=== PATIENT | female | born 1990 | race African-American/Black ===

== ENCOUNTER 2021-03-04 17:22 | Outpatient (CLI) | payer SELFPAY | END 2021-03-04 17:23 | disposition EMS.NT | LOC: EMS 17:22 | DX: M54.9 Dorsalgia, unspecified (principal); V49.59XA Passenger injured in collision with other motor vehicles in traffic accident, initial encounter; Y92.413 State road as the place of occurrence of the external cause ==

== ENCOUNTER 2021-05-21 12:31 | Outpatient (CLI) | payer OTHER | END 2021-05-21 12:32 | disposition EMS.NT | LOC: EMS 12:31 | DX: F41.9 Anxiety disorder, unspecified (principal) ==

== ENCOUNTER 2021-07-20 00:18 | Outpatient (CLI) | payer OTHER | END 2021-07-20 00:19 | disposition critical access hospital (66) | LOC: EMS 00:18 | DX: M25.511 Pain in right shoulder (principal); X50.9XXA Other and unspecified overexertion or strenuous movements or postures, initial encounter | CPT/HCPCS: A0425; A0427 ==

== ENCOUNTER 2021-07-20 00:35 | Emergency (ER) | payer OTHER ==
--- NOTE | 2021-07-20 00:35 | ED Physician Documentation ---
PD HPI UPPER EXT INJURY - Stated complaint Stated Complaint: RIGHT SHOULDER DISLOCATION - History obtained from History obtained from: Patient, EMS - History of Present Illness Location: Right, Shoulder Type of injury: Other (no trauma) Where injury occurred: Home Timing - onset: How many minutes ago (approximately 30-[address]) Timing - details: Abrupt onset Pain level now: 10 Improved by: Immobilization Worsened by: Moving, Palpating Associated symptoms: No: Weakness, Numbness, Tingling, Swelling, Discolored Similar symptoms before: No diagnosis Recently seen: Not recently seen - Treatment prior to arrival Treatment prior to arrival: IV fentanyl 50 micrograms, IV zofran 4 mg - Additonal information Additional information: BIBA. Approximately [address], patient says she was simply reaching around her husbands back when she had sudden onset of severe right shoulder pain. She has had similar episodes in the past which she says have felt like dislocations but she had managed to self-reduce the injury and thus has not needed medical evaluation in the past. She says previous such episodes have also been with minimal (atraumatic) provocation/circumstances. patient is approximately 8 weeks . She says she has already had US in this . Review of Systems Cardiac: reports: Reviewed and negative Respiratory: reports: Reviewed and negative GI: reports: Reviewed and negative : reports: Now EGA (8 weeks). denies: Vaginal bleeding Musculoskeletal: reports: Joint pain (right shoulder). denies: Neck pain, Back pain Neurologic: denies: Focal weakness, Numbness PD PAST MEDICAL HISTORY - Past Medical History Past Medical History: Yes Psych: Depression - Present Medications Home Medications: Ambulatory Orders Medication Instructions Recorded Confirmed Sertraline [Zoloft] 25 mg PO DAILY 07/20/21 07/20/21 - Allergies Allergies/Adverse Reactions: Allergies Allergy/AdvReac Type Severity Reaction Status Date / Time No Known Drug Allergies Allergy Verified 07/20/21 00:54 PD ED PE NORMAL - Vitals Vital signs reviewed: Yes - General General: Alert and oriented X 3, Well developed/nourished, Other (appears to be in painful distress at times ) - Neck Neck: No bony TTP - Cardiac Cardiac: RRR, No murmur - Respiratory Respiratory: No respiratory distress, Clear bilaterally - Neuro Neuro: No sensory deficit (LTS intact over right deltoid and all surfaces of RUE to fingertips) PD ED PE EXPANDED - Extremities Extremities: Deformity (hollow deformity inferior to acromion c/w glenohumeral dislocation), Limited ROM, Other (patient is using left hand to brace right arm in adduction) Results - Vitals Vitals: Vital Signs - 24 hr 07/20/21 07/20/21 07/20/21 02:09 02:16 02:25 Temperature Heart Rate 77 74 68 Respiratory 14 29 H 16 Rate Blood Pressure 137/94 H 120/89 H 130/95 H O2 Saturation 9 L 98 100 07/20/21 03:03 Temperature 36.8 C Heart Rate 62 Respiratory 14 Rate Blood Pressure 124/87 H O2 Saturation 100 Oxygen O2 Source Room air - Rads (name of study) right shoulder xrays Radiology: Prelim report reviewed, See rad report post-reduction right shoulder xrays Radiology: Prelim report reviewed, See rad report Procedures - Reduction Body part reduced: Right, Shoulder Fracture or dislocation: Dislocation Anesthesia: Morphine, Fentanyl Shoulder reduction technique: [place] / ext rotation Reduction aftercare: NV intact, Xray confirms reduction, Alignment improved, Sling, Patient tolerated well - Procedural sedation Sedation prep: Informed consent, Time out completed, PE performed, ASA 1 - healthy, IV O2 monitor, ET CO2 monitor, RT present Sedation Medications: propofol Mallampati classification: II Patient status during sedation: Responds to tactile, Vitals remained stable, Maintained airway, Recovered uneventfully Sedation recovery: Recovered uneventfully, Back to baseline Time in sedation (Minutes): 25 PD MEDICAL DECISION MAKING - ED course Complexity details: reviewed results, re-evaluated patient, considered differential, d/w patient ED course: presents with right shoulder dislocation without traumatic injury. She is 8 weeks . She reported minimal relief of pain with fentanyl 50mcg by EMS. I discussed with her the option of trying reduction using one of two techniques (scapular manipulation, [place]/external rotation) that have appreciable success rates without needing conscious sedation, so as to minimize risk to the fetus. She refuses the notion of trying to move the shoulder at all, let alone attempt reduction, without more pain medication and, preferably, conscious sedation. Morphine IV was required before she would allow for xrays to be undertaken. This was not unreasonable, given the pain typically associated with GH dislocation, but it seemed unlikely that any meaningful attempt at reduction would be achieved without conscious sedation. We discussed options for conscious sedation, with risks and benefits of different agents. The two approaches I felt most comfortable with were ketamine or else propofol with fentanyl. She declines ketamine when she is told side effects could include uncomfortable visions and emergence phenomenon. ED RN gave 25 mcg fentanyl and then I titrated propofol until adequate sedation achieved, reduction was rapid and easy once she was sedated, and she had rapid r eturn to baseline mental status. She is put in a sling and post-reduction xrays confirm reduction. She requests more pain medication prior to discharge. I again emphasized the importance of trying to minimize use of narcotic/opiate medications in setting of (but also recognizing that being in severe discomfort can also be detrimental to both mother and the ) and she acknowledges understanding that minimizing use of these medications is the goal. She is given oxycodone in ED, take-home pack of percocet. No rx provided, as she should be able to transition from percocet to acetaminophen by the end of the day. Return precautions discussed. Departure - Departure Disposition: 01 Home, Self Care Clinical Impression: Shoulder dislocation Qualifiers: Encounter type: initial encounter Laterality: right Qualified Code(s): S43.004A - Unspecified dislocation of right shoulder joint, initial encounter Condition: Good Instructions: ED Dislocation Shoulder Redu, ED Sling Follow-Up: Nikolay Cruz MD [Provider Admit Priv/Credential] - Comments: Follow up with your primary care provider for reevaluation of your shoulder. Referral to orthopedic surgery is at your primary care provider's discretion. Forms: Activity restrictions Discharge Date/Time: 07/20/21 03:33
[2021-07-20] MEDS ORDERED: MORPHINE 2 MG/ML CARPUJECT IVP STA (01:15)
--- NOTE | 2021-07-20 01:55 | XRAY Report ---
PROCEDURE: Shoulder 2 View RT INDICATIONS: right shoulder injury TECHNIQUE: 2 views of the shoulder were acquired. COMPARISON: None. FINDINGS: Bones: Humeral head is inferior in relation to the glenohumeral joint. There is no visualized fractur e. No suspicious bony lesions. Visualized ribs appear intact. Soft tissues: No suspicious soft tissue calcifications. IMPRESSION: Anterior shoulder dislocation without visualized fracture. Reviewed by: Betzy Otero MD on 07/20/2021 1:54 AM PST Approved by: Betzy Otero MD on 07/20/2021 1:54 AM [facility] Station ID: [id number]
[2021-07-20] MEDS ORDERED: fentaNYL 100 MCG/2 ML VIAL IVP STA (01:59)
[2021-07-20] MEDS: PROPOFOL 200 MG/20 ML VIAL IVP STA ×4 (02:13→02:16)
[2021-07-20] MEDS ORDERED: oxyCODONE 5 MG TABLET PO STA (02:57)
[2021-07-20 03:04] VITALS: BP 124/87
[2021-07-20] MEDS ORDERED: oxyCODONE/ACET 5/325 Prepack 4 PO STA (03:17)
--- NOTE | 2021-07-20 07:47 | XRAY Report ---
PROCEDURE: Shoulder 2 View RT INDICATIONS: post-reduction TECHNIQUE: 2 views of the shoulder were acquired. COMPARISON: None. FINDINGS: Bones: There has been interval reduction of the right glenohumeral joint. No definite fracture ident ified. No suspicious bony lesions. Visualized ribs appear intact. Soft tissues: No suspicious soft tissue calcifications. IMPRESSION: 1. Interval reduction of glenohumeral joint dislocation. 2. No definite fracture. Reviewed by: Asa Peterson MD on 07/20/2021 7:45 AM PST Approved by: Asa Peterson MD on 07/20/2021 7:45 AM [facility] Station ID: [id number]
== END 2021-07-20 03:33 | disposition home or self-care (01) ==
LOC: EDUNIT# → ED 00:35
DX: O9A.211 Injury, poisoning and certain other consequences of external causes complicating pregnancy, first trimester (principal); S43.014A Anterior dislocation of right humerus, initial encounter; X50.9XXA Other and unspecified overexertion or strenuous movements or postures, initial encounter; Y93.89 Activity, other specified; Y92.009 Unspecified place in unspecified non-institutional (private) residence as the place of occurrence of the external cause; Z3A.08 8 weeks gestation of pregnancy
CPT/HCPCS: 23655; 73030; 96374; 96375; 99151; 99153; 99283; 99284; A9270

== ENCOUNTER 2021-07-25 09:31 | Emergency (ER) | payer OTHER ==
[2021-07-25] MEDS ORDERED: ONDANSETRON 4 MG/2 ML VIAL IVP STA ×3 (09:50→11:54)
[2021-07-25 09:59] LABS: BASOPHILS % (AUTO) 0.4 %; EOSINOPHILS # (AUTO) 0.1 10^3/uL (0.0-0.7); EOSINOPHILS % (AUTO) 0.7 %; HCT - HEMATOCRIT 40.6 % (37.0-47.0); HGB - HEMOGLOBIN 14.1 g/dL (12.0-16.0); LYMPHOCYTES # (AUTO) 2.1 10^3/uL (1.5-3.5); LYMPHOCYTES % (AUTO) 19.3 %; MEAN CORPUSCULAR HEMOGLOBIN 30.1 pg (27.0-31.0); MEAN CORPUSCULAR HGB CONC 34.7 g/dL (32.0-36.0); MEAN CORPUSCULAR VOLUME 86.6 fL (81.0-99.0); MONOCYTES # (AUTO) 0.6 10^3/uL (0.0-1.0); MONOCYTES % (AUTO) 5.7 %; NEUTROPHILS # (AUTO) 8.1 10^3/uL (1.5-6.6); NEUTROPHILS % (AUTO) 73.6 %; RED BLOOD COUNT 4.69 10^6/uL (4.20-5.40); RED CELL DISTRIBUTION WIDTH 12.8 % (12.0-15.0)
[2021-07-25 10:09] LABS: ALBUMIN 4.3 g/dL (3.2-5.5); ALBUMIN/GLOBULIN RATIO 1.1 (1.0-2.2); CALCIUM 9.2 mg/dL (8.5-10.3); CREATININE 0.6 mg/dL (0.4-1.0); POTASSIUM 3.7 mmol/L (3.5-5.0); TOTAL PROTEIN 8.1 g/dL (6.7-8.2)
[2021-07-25] MEDS ORDERED: MORPHINE 10 MG/ML VIAL IVP STA ×2 (10:20→11:54)
[2021-07-25] MEDS ORDERED: SODIUM CHLORIDE 0.9% 1,000 ML IV STA ×2 (10:21→12:27)
--- NOTE | 2021-07-25 13:15 | ED Physician Documentation ---
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 She had a syncopal episode in the waiting room. Review of Systems Constitutional: denies: Fever Eyes: denies: Decreased vision Ears: denies: Ear pain Nose: denies: Rhinorrhea / runny nose, Congestion Throat: denies: Sore throat Cardiac: denies: Chest pain / pressure, Palpitations Respiratory: denies: Dyspnea, Cough GI: reports: Abdominal Pain, Nausea, Vomiting : reports: Vaginal bleeding, Other (pelvic cramping). denies: Dysuria, Frequency Skin: denies: Rash Musculoskeletal: denies: Neck pain, Extremity pain Neurologic: reports: Generalized weakness. 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 ARCHITECT: None : None HEENT: None Psych: Depression Musculoskeletal: None Derm: None - Past Surgical History Past Surgical History: No - Present Medications Home Medications: Ambulatory Orders Medication Instructions Recorded Confirmed Sertraline [Zoloft] 25 mg PO DAILY 07/20/21 07/20/21 Ondansetron Odt [Zofran] 4 mg TL Q6H PRN #10 tablet 07/25/21 Sucralfate [Carafate] 1 gm PO ACHS #60 tablet 07/25/21 - Allergies Allergies/Adverse Reactions: Allergies Allergy/AdvReac Type Severity Reaction Status Date / Time No Known Drug Allergies Allergy Verified 07/25/21 09:44 - Social History Does the pt smoke?: No Smoking Status: Never smoker Does the pt drink ETOH?: Yes Does the pt have substance abuse?: No - Immunizations Immunizations are current?: No - POLST Patient has POLST: No PD ED PE NORMAL - Vitals Vital signs reviewed: Yes (hypertensive ) - General General: Alert and oriented X 3, Well developed/nourished, Other (withdrawn, pale appearing female with "scromicing") - HEENT HEENT: Atraumatic, PERRL, EOMI - Neck Neck: Supple, no meningeal sign, No bony TTP - Cardiac Cardiac: RRR, No murmur - Respiratory Respiratory: No respiratory distress, Clear bilaterally - Abdomen Abdomen: Normal bowel sounds, Soft, Non distended, No organomegaly, Other (epigastrict tenderness without garding or rebound. 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 ) Results - Vitals Vitals: Vital Signs - 24 hr 07/25/21 07/25/21 07/25/21 09:44 09:49 10:42 Temperature 36.6 C Heart Rate 88 80 84 Respiratory 22 22 22 Rate Blood Pressure 155/114 H 118/66 136/89 H O2 Saturation 100 100 99 07/25/21 07/25/21 07/25/21 11:00 11:35 14:22 Temperature Heart Rate 80 80 80 Respiratory 18 18 20 Rate Blood Pressure 147/94 H O2 Saturation 98 100 07/25/21 14:35 Temperature Heart Rate 80 Respiratory 20 Rate Blood Pressure 143/126 H O2 Saturation 100 Oxygen O2 Source Room air - Labs Labs: Laboratory Tests 07/25/21 07/25/21 07/25/21 09:45 09:45 14:00 WBC 11.0 H RBC 4.69 Hgb 14.1 Hct 40.6 MCV 86.6 MCH 30.1 MCHC 34.7 RDW 12.8 Neut # (Auto) 8.1 H Lymph # (Auto) 2.1 [place] # (Auto) 0.6 Eos # (Auto) 0.1 Baso # (Auto) 0.0 Absolute Nucleated RBC 0.00 Nucleated RBC % 0.0 Sodium 132 L Potassium 3.7 Chloride 101 Carbon Dioxide 20 L Anion Gap 11.0 BUN 7 Creatinine 0.6 Estimated GFR (MDRD) 144 Glucose 106 H Calcium 9.2 Total Bilirubin 1.0 AST 27 ALT 45 Alkaline Phosphatase 53 Total Protein 8.1 Albumin 4.3 Globulin 3.8 Albumin/Globulin Ratio 1.1 Lipase 25 Urine Color YELLOW Urine Clarity CLOUDY Urine pH 8.5 H Ur Specific [place] 1.020 Urine Protein TRACE Urine Glucose (UA) NEGATIVE Urine Ketones 40 H Urine Occult Blood NEGATIVE Urine Nitrite NEGATIVE Urine Bilirubin NEGATIVE Urine Urobilinogen 0.2 (NORMAL) Ur Leukocyte Esterase NEGATIVE Urine RBC 0-5 Urine WBC 0-3 Ur Squamous Epith Cells MANY Squamous H Amorphous Sediment Marked Urine Bacteria Many H Ur Microscopic Review INDICATED Urine Culture Comments NOT INDICATED Urine Opiates Screen POSITIVE H Ur Oxycodone Screen NEGATIVE Urine Methadone Screen NEGATIVE Ur Propoxyphene Screen NEGATIVE Ur Barbiturates Screen NEGATIVE Ur Tricyclics Screen NEGATIVE Ur Phencyclidine Scrn NEGATIVE Ur Amphetamine Screen NEGATIVE U Methamphetamines Scrn NEGATIVE U Benzodiazepines Scrn NEGATIVE Urine Cocaine Screen NEGATIVE U Cannabinoids Screen POSITIVE H - Rads (name of study) ultrasound 1st trimester Radiology: Prelim report reviewed (Impression: Single live intrauterine gestation with estimated gestational age of 9 weeks 2 days. No subchorionic hemorrhage. Right ovarian cyst measuring up to 6.4 cm. No findings of ovarian torsion), EMP read indepedently, See rad report PD MEDICAL DECISION MAKING - ED course Complexity details: reviewed results, re-evaluated patient, considered differential, d/w patient, d/w family ED course: 30-year-old female who is 9 weeks has developed bleeding this morning with a walnut sized clot and cramping. She arrives with retching and vomiting that appears uncontrolled. She has the vomiting noises consistent with cannabis hyperemesis. She admits to use of cannabis and believes that this is what is helping her. She is administered intravenous Zofran and morphine for pain and this has little effect on her nausea. She is administered a second dose of Zofran again without much change. She continues to complain of nausea have a discussion with her about the possibility of cannabis hyperemesis and we have administered Haldol 2 mg intravenously with 25 mg of Benadryl. This resulted in the patient having improvement in her nausea. She then concentrated on her abdominal pain and she was administered a GI cocktail consisting of viscous lidocaine and Mylanta which improved that as well. Departure - Departure Disposition: 01 Home, Self Care Clinical Impression: Threatened affecting intrauterine , Hyperemesis arising during Gastritis Qualifiers: Gastritis type: unspecified gastritis Chronicity: acute Gastritis bleeding: without bleeding Qualified Code(s): K29.00 - Acute gastritis without bleeding Condition: Stable Instructions: ED Preg Morning Sickness, ED Miscarriage Poss, ED PUD Vs Gastritis, ED Nausea Vomiting Prescriptions: Sucralfate [Carafate] 1 gm PO ACHS #60 tablet Ondansetron Odt [Zofran] 4 mg TL Q6H PRN #10 tablet PRN Reason: Nausea / Vomiting Comments: Monik, today it appears your vomiting was uncontrolled and we have given you some Haldol as an antidote for cannabis hyperemesis. The recommendation is to stop the cannabis for now and use the zofran as needed for the nausea. In addition it appears your stomach is irritated and I have e-scribed some carafate as well to [facility] in [place].
[2021-07-25] MEDS ORDERED: diphenhydrAMINE INJ 50 MG/ML VIAL IVP STA (13:21)
[2021-07-25] MEDS ORDERED: HALOPERIDOL 5 MG/ML VIAL IVP ONE (13:21)
--- NOTE | 2021-07-25 13:22 | Ultrasound Report ---
PROCEDURE: OB First Trimester INDICATIONS: cramping, bleeding syncope OUTSIDE/PRIOR DATING DATA: Last menstrual period (LMP): Unknown. LMP-based estimated date of delivery (RIANA): Not applicable. First dating scan (date and location): 13/07/2021. Estimated date of delivery (RIANA) from first dating scan: 02/25/2022. The below data below was generated using the ultrasound derived RIANA of 22 TECHNIQUE: Real-time scanning was performed of the fetus and maternal pelvic organs, with image documentation. COMPARISON: None FINDINGS: There is a gestational sac in the uterine fundus measuring approximately 4.6 cm (gestational age kellie mate of 10 weeks 1 day). Within the gestational sac, fetus with crown-rump length of 2.5 cm is presen t (gestational age estimate of 9 weeks 2 days). heart rate detected at 162 bpm. Yolk sac noted. No subchorionic hemorrhage identified. Simple cyst in the right ovary measuring 6.4 cm. Ovaries othe rwise normal. IMPRESSION: Single live intrauterine gestation with estimated gestational age of 9 weeks 2 days. No subchorionic hemorrhage. Right ovarian cyst measuring up to 6.4 cm. No findings of ovarian torsion. Reviewed by: Dakotah Alexander MD on 07/25/2021 1:21 PM PST Approved by: Dakotah Alexander MD on 07/25/2021 1:21 PM PST Station ID: [id number]
[2021-07-25] MEDS ORDERED: MAG HYDROX/AL HYDROX/SIMETH 30 ML UDC PO STA (14:13)
[2021-07-25] MEDS ORDERED: LIDOCAINE VISCOUS 2% 15 ML UDC MM STA (14:13)
[2021-07-25 14:26] LABS: MUDS CUTOFF CONCENTRATIONS CUTOFF CONC BELOW:
[2021-07-25 14:34] LABS: BILIRUBIN,URINE NEGATIVE (NEGATIVE); GLUCOSE, URINE (UA) NEGATIVE (NEGATIVE); KETONES,URINE (UA) 40 mg/dL (NEGATIVE); LEUKOCYTE ESTERASE, URINE NEGATIVE (NEGATIVE); NITRITE,URINE NEGATIVE (NEGATIVE); OCCULT BLOOD,URINE NEGATIVE (NEGATIVE); PH,URINE 8.5 PH (5.0-7.5); PROTEIN,URINE TRACE mg/dL (NEGATIVE); UROBILINOGEN,URINE 0.2 (NORMAL) E.U./dL (NORMAL)
[2021-07-25 14:39] LABS: CLARITY,URINE CLOUDY (CLEAR)
[2021-07-25 14:50] LABS: AMORPHOUS SEDIMENT,UR Marked /LPF; BACTERIA,URINE Many /HPF (None Seen); RBC,URINE 0-5 /HPF (0-5); SQUAMOUS EPITHELIAL CELL,UR MANY Squamous (<= Few); WBC,URINE 0-3 /HPF (0-5)
[2021-07-25 14:51] LABS: AMPHETAMINE SCREEN,URINE NEGATIVE (NEGATIVE); BARBITURATE SCREEN,UR NEGATIVE (NEGATIVE); BENZODIAZEPINES SCREEN, URINE NEGATIVE (NEGATIVE); COCAINE SCREEN URINE NEGATIVE (NEGATIVE); METHADONE SCREEN, URINE NEGATIVE (NEGATIVE); METHAMPHETAMINES SCREEN, URINE NEGATIVE (NEGATIVE); OPIATE SCREEN, URINE POSITIVE (NEGATIVE); OXYCODONE SCREEN, URINE NEGATIVE (NEGATIVE); PROPOXYPHENE SCREEN, URINE NEGATIVE (NEGATIVE); THC CANNABINOID SCREEN, URINE POSITIVE (NEGATIVE); TRICYCLIC ANTIDEPRESSANT,URINE NEGATIVE (NEGATIVE)
[2021-07-25 15:31] VITALS: BP 140/106
== END 2021-07-25 15:30 | disposition home or self-care (01) ==
LOC: ED 09:31
DX: O21.0 Mild hyperemesis gravidarum (principal); O20.0 Threatened abortion; O99.611 Diseases of the digestive system complicating pregnancy, first trimester; K29.00 Acute gastritis without bleeding; Z3A.09 9 weeks gestation of pregnancy
CPT/HCPCS: 36415; 80053; 80306; 81001; 81003; 83690; 85025; 87086; 96361; 96374; 96375; 96376; 99284

== ENCOUNTER 2021-07-25 21:22 | Emergency (ER) | payer OTHER ==
[2021-07-25] MEDS ORDERED: HALOPERIDOL 5 MG/ML VIAL IVP ONE (21:40)
[2021-07-25] MEDS ORDERED: diphenhydrAMINE INJ 50 MG/ML VIAL IVP STA (21:40)
[2021-07-25 21:56] LABS: BASOPHILS % (AUTO) 0.1 %; HCT - HEMATOCRIT 37.6 % (37.0-47.0); HGB - HEMOGLOBIN 13.2 g/dL (12.0-16.0); LYMPHOCYTES # (AUTO) 0.9 10^3/uL (1.5-3.5); LYMPHOCYTES % (AUTO) 4.8 %; MEAN CORPUSCULAR HEMOGLOBIN 29.9 pg (27.0-31.0); MEAN CORPUSCULAR HGB CONC 35.1 g/dL (32.0-36.0); MEAN CORPUSCULAR VOLUME 85.3 fL (81.0-99.0); MEAN PLATELET VOLUME 9.6 fL (7.9-10.8); MONOCYTES # (AUTO) 0.4 10^3/uL (0.0-1.0); MONOCYTES % (AUTO) 1.9 %; NEUTROPHILS # (AUTO) 17.5 10^3/uL (1.5-6.6); NEUTROPHILS % (AUTO) 92.8 %; PLT - PLATELET COUNT 304 10^3/uL (130-450); RED BLOOD COUNT 4.41 10^6/uL (4.20-5.40); RED CELL DISTRIBUTION WIDTH 12.6 % (12.0-15.0); WHITE BLOOD COUNT 18.9 x10^3/uL (4.8-10.8)
[2021-07-25 22:09] LABS: ALBUMIN 4.2 g/dL (3.2-5.5); ALBUMIN/GLOBULIN RATIO 1.2 (1.0-2.2); BILIRUBIN,TOTAL 0.8 mg/dL (0.2-1.0); CALCIUM 8.9 mg/dL (8.5-10.3); CREATININE 0.6 mg/dL (0.4-1.0); POTASSIUM 3.3 mmol/L (3.5-5.0); TOTAL PROTEIN 7.8 g/dL (6.7-8.2)
[2021-07-25] MEDS ORDERED: MORPHINE 2 MG/ML CARPUJECT IM STA (23:00)
--- NOTE | 2021-07-25 23:31 | ED Physician Documentation ---
PD HPI ABD PAIN - Stated complaint Stated Complaint: VOMIT/ABD PX - Chief complaint Chief Complaint: Abd Pain - History obtained from History obtained from: Patient - Additional information Additional information: Pt returns to the ED for CC of abdominal pain and nausea. She is just over 9 weeks by US earlier today for the same complaints. The pt denies development of new sx since her previous visit. She states she was feeling better when she left, but now sx have recurred. No further vaginal bleeding. No fevers/chills, dysuria, or cough. The pt smokes marijuana. She states she has no history of cyclical vomiting previously. She received morphine earlier, and states she would like another dose. Review of Systems Ten Systems: 10 systems reviewed and negative Constitutional: reports: Reviewed and negative Eyes: reports: Reviewed and negative Ears: reports: Reviewed and negative Nose: reports: Reviewed and negative Throat: reports: Reviewed and negative Cardiac: reports: Reviewed and negative Respiratory: reports: Reviewed and negative GI: reports: Abdominal Pain, Nausea, Vomiting : reports: Reviewed and negative Skin: reports: Reviewed and negative Musculoskeletal: reports: Reviewed and negative Neurologic: reports: Reviewed and negative Psychiatric: reports: Reviewed and negative Endocrine: reports: Reviewed and negative Immunocompromised: reports: Reviewed and negative PD PAST MEDICAL HISTORY - Past Medical History Cardiovascular: None Respiratory: None Neuro: None Endocrine/Autoimmune: None GI: None 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 : None HEENT: None Psych: Depression Musculoskeletal: None Derm: None - Past Surgical History Past Surgical History: No - Present Medications Home Medications: Ambulatory Orders Medication Instructions Recorded Confirmed Sertraline [Zoloft] 25 mg PO DAILY 07/20/21 07/25/21 Nitrofurantoin [Macrobid] 100 mg PO DAILY 07/25/21 07/25/21 Ondansetron Odt [Zofran] 4 mg TL Q6H PRN #10 tablet 07/25/21 Ondansetron Odt [Zofran] 4 mg TL Q6H PRN #10 tablet 07/25/21 07/25/21 Sucralfate [Carafate] 1 gm PO ACHS #60 tablet 07/25/21 07/25/21 - Allergies Allergies/Adverse Reactions: Allergies Allergy/AdvReac Type Severity Reaction Status Date / Time No Known Drug Allergies Allergy Verified 07/25/21 09:44 - Social History Does the pt smoke?: No Smoking Status: Never smoker Does the pt drink ETOH?: Yes Does the pt have substance abuse?: No - Immunizations Immunizations are current?: No - POLST Patient has POLST: No PD ED PE NORMAL - Vitals Vital signs reviewed: Yes - General General: Alert and oriented X 3, Well developed/nourished, Other (Pt appears uncomfortable, but otherwise in NAD) - HEENT HEENT: Atraumatic, PERRL, EOMI, Moist mucous membranes - Neck Neck: Supple, no meningeal sign - Cardiac Cardiac: RRR, No murmur, Strong equal pulses - Respiratory Respiratory: No respiratory distress, Clear bilaterally - Abdomen Abdomen: Soft, Non distended, Other (Mild, diffuse tenderness throughout abdomen) - Back Back: No CVA TTP, No spinal TTP - Derm Derm: Normal color, Warm and dry, No rash - Extremities Extremities: No deformity, No edema, No calf tenderness / cord - Neuro Neuro: Alert and oriented X 3 - Psych Psych: Normal mood, Normal affect Results - Vitals Vitals: Oxygen O2 Source Room air - Labs Labs: Laboratory Tests 07/25/21 07/25/21 21:51 21:51 WBC 18.9 H RBC 4.41 Hgb 13.2 Hct 37.6 MCV 85.3 MCH 29.9 MCHC 35.1 RDW 12.6 Plt Count 304 MPV 9.6 Neut # (Auto) 17.5 H Lymph # (Auto) 0.9 L [place] # (Auto) 0.4 Eos # (Auto) 0.0 Baso # (Auto) 0.0 Absolute Nucleated RBC 0.00 Nucleated RBC % 0.0 Sodium 130 L Potassium 3.3 L Chloride 99 L Carbon Dioxide 19 L Anion Gap 12.0 BUN 5 L Creatinine 0.6 Estimated GFR (MDRD) 144 Glucose 123 H Calcium 8.9 Total Bilirubin 0.8 AST 26 ALT 43 Alkaline Phosphatase 51 Total Protein 7.8 Albumin 4.2 Globulin 3.6 Albumin/Globulin Ratio 1.2 Lipase 30 PD MEDICAL DECISION MAKING - ED course Complexity details: re-evaluated patient, considered differential, d/w patient ED course: I discussed with the pt that we will treat her symptomatically in the ED, but that given that she is , we are not going to be relying on opiates/narcotics to manage ill-defined pain. She may have a single, small dose of morphine. She has been treated for her nausea, and is feeling better. We have discussed the usual indications for return. Departure - Departure Disposition: 01 Home, Self Care Clinical Impression: Vomiting Qualifiers: Vomiting type: bilious vomiting Nausea presence: with nausea Qualified Code(s): R11.14 - Bilious vomiting Abdominal pain Qualifiers: Abdominal location: generalized Qualified Code(s): R10.84 - Generalized abdominal pain Condition: Stable Instructions: ED Nausea Vomiting Prescriptions: Ondansetron Odt [Zofran] 4 mg TL Q6H PRN #10 tablet PRN Reason: Nausea / Vomiting Comments: Extensive work-up was done on your visit earlier today, and showed that for now, your looks very good and there is no evidence of any other significant problems in your abdomen. Please take the nausea medicine as prescribed. You will need to talk to your OB specialist about your abdominal pain, And the best medication to help with this, considering your . Discharge Date/Time: 07/26/21 00:46
[2021-07-26 00:39] VITALS: BP 134/94
== END 2021-07-26 00:46 | disposition home or self-care (01) ==
LOC: ED 21:22
DX: O21.8 Other vomiting complicating pregnancy (principal); O26.91 Pregnancy related conditions, unspecified, first trimester; R10.84 Generalized abdominal pain; O20.0 Threatened abortion; O99.611 Diseases of the digestive system complicating pregnancy, first trimester; K29.00 Acute gastritis without bleeding; Z3A.09 9 weeks gestation of pregnancy
CPT/HCPCS: 36415; 76801; 80053; 80306; 81001; 83690; 85025; 96361; 96372; 96374; 96375; 96376; 99284; A9270; J1200; 81003; 87086

== ENCOUNTER 2021-07-27 18:29 | Emergency (ER) | payer OTHER ==
[2021-07-27 19:15] LABS: ALBUMIN 4.3 g/dL (3.2-5.5); ALBUMIN/GLOBULIN RATIO 1.2 (1.0-2.2); CREATININE 0.6 mg/dL (0.4-1.0); POTASSIUM 3.2 mmol/L (3.5-5.0); TOTAL PROTEIN 7.9 g/dL (6.7-8.2)
[2021-07-27] MEDS ORDERED: SODIUM CHLORIDE 0.9% 1,000 ML IV STA (19:15)
[2021-07-27] MEDS ORDERED: ACETAMINOPHEN 1,000 MG/100 ML 100 ML IV ONE (19:15)
--- NOTE | 2021-07-27 19:17 | ED Physician Documentation ---
History of Present Illness - Stated complaint Stated Complaint: VOMITING/HEADACHE/ABD PX - Chief complaint Chief Complaint: Abd Pain - History obtained from History obtained from: Patient - Additonal information Additional information: 30yF currently at 9 wga p/w n/v nbnb and headache and diarrhea. patient was seen 2 days ago for abd pain, nausea. possible cyclic vomiting syndrome history. actively using marijuana. see NANY. 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 : None HEENT: None Psych: Depression Musculoskeletal: None Derm: None - Past Surgical History Past Surgical History: No - Present Medications Home Medications: Ambulatory Orders Medication Instructions Recorded Confirmed Sertraline [Zoloft] 25 mg PO DAILY 07/20/21 07/25/21 Nitrofurantoin [Macrobid] 100 mg PO DAILY 07/25/21 07/25/21 Ondansetron Odt [Zofran] 4 mg TL Q6H PRN #10 tablet 07/25/21 Ondansetron Odt [Zofran] 4 mg TL Q6H PRN #10 tablet 07/25/21 07/25/21 Sucralfate [Carafate] 1 gm PO ACHS #60 tablet 07/25/21 07/25/21 - Allergies Allergies/Adverse Reactions: Allergies Allergy/AdvReac Type Severity Reaction Status Date / Time No Known Drug Allergies Allergy Verified 07/27/21 18:39 - Social History Does the pt smoke?: No Smoking Status: Never smoker Does the pt drink ETOH?: Yes Does the pt have substance abuse?: No - Immunizations Immunizations are current?: No - POLST Patient has POLST: No PD ED PE NORMAL - Vitals Vital signs reviewed: Yes - General General: Alert and oriented X 3, Other (intermittenly groaning, speaking in high pitched voice) - HEENT HEENT: Atraumatic, PERRL, EOMI - Neck Neck: Supple, no meningeal sign - Cardiac Cardiac: RRR - Respiratory Respiratory: No respiratory distress, Clear bilaterally - Abdomen Abdomen: Non tender, Non distended - Derm Derm: Normal color, Warm and dry - Extremities Extremities: No deformity, No edema - Neuro Neuro: No motor deficit, No sensory deficit - Psych Psych: Other (agitated, repeatedly asking for morphine and fentanyl by name. difficult to redirect.) Results - Vitals Vitals: Oxygen O2 Source Room air - Labs Labs: Laboratory Tests 07/27/21 07/27/21 07/27/21 18:58 18:58 19:22 WBC 15.2 H RBC 4.27 Hgb 12.8 Hct 36.5 L MCV 85.5 MCH 30.0 MCHC 35.1 RDW 12.6 Plt Count 293 MPV 9.8 Neut # (Auto) 12.9 H Lymph # (Auto) 1.6 [place] # (Auto) 0.7 Eos # (Auto) 0.0 Baso # (Auto) 0.1 Absolute Nucleated RBC 0.00 Nucleated RBC % 0.0 Sodium 133 L Potassium 3.2 L Chloride 100 L Carbon Dioxide 20 L Anion Gap 13.0 BUN 7 Creatinine 0.6 Estimated GFR (MDRD) 144 Glucose 114 H Calcium 9.0 Total Bilirubin 1.0 AST 24 ALT 33 Alkaline Phosphatase 47 Total Protein 7.9 Albumin 4.3 Globulin 3.6 Albumin/Globulin Ratio 1.2 Lipase 32 HCG, Quant 275227.00 Urine Color Urine Clarity Urine pH Ur Specific [place] Urine Protein Urine Glucose (UA) Urine Ketones Urine Occult Blood Urine Nitrite Urine Bilirubin Urine Urobilinogen Ur Leukocyte Esterase Ur Microscopic Review Urine Culture Comments 07/27/21 20:37 WBC RBC Hgb Hct MCV MCH MCHC RDW Plt Count MPV Neut # (Auto) Lymph # (Auto) [place] # (Auto) Eos # (Auto) Baso # (Auto) Absolute Nucleated RBC Nucleated RBC % Sodium Potassium Chloride Carbon Dioxide Anion Gap BUN Creatinine Estimated GFR (MDRD) Glucose Calcium Total Bilirubin AST ALT Alkaline Phosphatase Total Protein Albumin Globulin Albumin/Globulin Ratio Lipase HCG, Quant Urine Color YELLOW Urine Clarity CLEAR Urine pH 7.0 Ur Specific [place] 1.020 Urine Protein NEGATIVE Urine Glucose (UA) NEGATIVE Urine Ketones >=80 H Urine Occult Blood NEGATIVE Urine Nitrite NEGATIVE Urine Bilirubin NEGATIVE Urine Urobilinogen 0.2 (NORMAL) Ur Leukocyte Esterase NEGATIVE Ur Microscopic Review NOT INDICATED Urine Culture Comments NOT INDICATED PD MEDICAL DECISION MAKING - ED course ED course: Note that I was called to the patient's room by MARK Bryan upon her being moved from triage due to seizure-like activity. Upon my evaluation patient was sitting in bed without any seizure-like activity and was alert and oriented, moving all extremities, stating she had just had a seizure. she was able to give a full history with intermittent screaming and moaning. She then asked me for morphine by name, stating it works well. After exam I checked her prior charts and NANY form and saw she was seen here twice in the past couple of days for n/v/abd pain and had thorough workup, also requesting morphine on prior visit. Tox screen was positive for marijuana and opiates. She is 9 weeks therefore I will provide IV tylenol which is safe in . vital signs within normal limits with exception of borderline HTN 140/90. Will continue to monitor, recheck labs, treat nausea with zofran and provide IVF. I reevaluated the patient s/p zofran and IV tylenol. She is no longer retching but agitated, speaking in loud high pitched voice asking over and over for fentanyl, morphine and IV benadryl. advised her since this may be a desired we cannot give her IV narcotic medication or benadryl. She is agreeable to try pepcid to settle the stomach. She was very insistent on wanting benadryl "to knock me out" and since it is usually relatively benign in early I agreed to provide. Offered to keep her here until morning time to see social work as outlined on her NANY but patient has decided to go home at this time. Return precautions provided. Departure - Departure Disposition: 01 Home, Self Care Clinical Impression: Nausea, Epigastric pain, Early stage of Condition: Stable Instructions: ED Abdominal Pain Female Non-Specific Abdominal Pain Comments: You were seen in the ED for evaluation of nausea in the first trimester and abdominal pain in the stomach. You may have gastric issues with your stomach that should be further addressed with your primary care [place] Please eat mild foods, make sure you have small snacks throughout the day and follow up with your enamel finisher and primary doctor this week. Return to the ED if you have new or worsening symptoms or other concerns. Discharge Date/Time: 07/27/21 20:50
[2021-07-27] MEDS ORDERED: ONDANSETRON 4 MG/2 ML VIAL IVP STA (19:23)
[2021-07-27 19:25] LABS: BASOPHILS # (AUTO) 0.1 10^3/uL (0.0-0.1); BASOPHILS % (AUTO) 0.3 %; EOSINOPHILS % (AUTO) 0.1 %; HCT - HEMATOCRIT 36.5 % (37.0-47.0); HGB - HEMOGLOBIN 12.8 g/dL (12.0-16.0); LYMPHOCYTES # (AUTO) 1.6 10^3/uL (1.5-3.5); LYMPHOCYTES % (AUTO) 10.4 %; MEAN CORPUSCULAR HGB CONC 35.1 g/dL (32.0-36.0); MEAN CORPUSCULAR VOLUME 85.5 fL (81.0-99.0); MEAN PLATELET VOLUME 9.8 fL (7.9-10.8); MONOCYTES # (AUTO) 0.7 10^3/uL (0.0-1.0); MONOCYTES % (AUTO) 4.4 %; NEUTROPHILS # (AUTO) 12.9 10^3/uL (1.5-6.6); NEUTROPHILS % (AUTO) 84.5 %; PLT - PLATELET COUNT 293 10^3/uL (130-450); RED BLOOD COUNT 4.27 10^6/uL (4.20-5.40); RED CELL DISTRIBUTION WIDTH 12.6 % (12.0-15.0); WHITE BLOOD COUNT 15.2 x10^3/uL (4.8-10.8)
[2021-07-27] MEDS ORDERED: FAMOTIDINE 20 MG/2 ML VIAL IVP STA ×2 (20:07→20:13)
[2021-07-27] MEDS ORDERED: diphenhydrAMINE 25 MG CAPSULE PO STA (20:18)
[2021-07-27 20:50] VITALS: BP 126/83
[2021-07-27 20:55] LABS: BILIRUBIN,URINE NEGATIVE (NEGATIVE); GLUCOSE, URINE (UA) NEGATIVE (NEGATIVE); KETONES,URINE (UA) >=80 mg/dL (NEGATIVE); LEUKOCYTE ESTERASE, URINE NEGATIVE (NEGATIVE); NITRITE,URINE NEGATIVE (NEGATIVE); OCCULT BLOOD,URINE NEGATIVE (NEGATIVE); PROTEIN,URINE NEGATIVE (NEGATIVE); UROBILINOGEN,URINE 0.2 (NORMAL) E.U./dL (NORMAL)
[2021-07-27 20:56] LABS: CLARITY,URINE CLEAR (CLEAR)
== END 2021-07-27 20:50 | disposition home or self-care (01) ==
LOC: ED 18:29
DX: O26.891 Other specified pregnancy related conditions, first trimester (principal); R10.13 Epigastric pain; O21.8 Other vomiting complicating pregnancy; Z3A.09 9 weeks gestation of pregnancy
CPT/HCPCS: 36415; 80053; 81003; 83690; 84702; 85025; 96365; 96375; 99281; 99283; A9270; J0131; 81001; 87086

== ENCOUNTER 2021-08-03 00:24 | Outpatient (CLI) | payer OTHER | END 2021-08-03 00:25 | disposition left against medical advice (07) | LOC: EMS 00:24 | DX: O26.91 Pregnancy related conditions, unspecified, first trimester (principal); R56.9 Unspecified convulsions ==

== ENCOUNTER 2021-09-26 19:47 | Outpatient (CLI) | payer SELFPAY | END 2021-09-26 19:48 | disposition critical access hospital (66) | LOC: EMS 19:47 | DX: O26.90 Pregnancy related conditions, unspecified, unspecified trimester (principal); N89.8 Other specified noninflammatory disorders of vagina; R45.89 Other symptoms and signs involving emotional state | CPT/HCPCS: A0425; A0429 ==

== ENCOUNTER 2021-09-26 20:01 | Emergency (ER) | payer SELFPAY ==
[2021-09-26 20:44] VITALS: BP 110/67
== END 2021-09-26 21:37 | disposition left against medical advice (07) ==
LOC: EDUNIT# → ED 20:01
DX: Z53.21 Procedure and treatment not carried out due to patient leaving prior to being seen by health care provider (principal)

== ENCOUNTER 2021-09-26 21:35 | Emergency (ER) | payer SELFPAY ==
[2021-09-26 23:05] LABS: BILIRUBIN,URINE NEGATIVE (NEGATIVE); GLUCOSE, URINE (UA) NEGATIVE (NEGATIVE); KETONES,URINE (UA) >=80 mg/dL (NEGATIVE); LEUKOCYTE ESTERASE, URINE NEGATIVE (NEGATIVE); NITRITE,URINE NEGATIVE (NEGATIVE); OCCULT BLOOD,URINE NEGATIVE (NEGATIVE); PROTEIN,URINE 100 mg/dL (NEGATIVE); UROBILINOGEN,URINE 0.2 (NORMAL) E.U./dL (NORMAL)
[2021-09-26 23:06] LABS: CLARITY,URINE CLEAR (CLEAR)
[2021-09-26 23:15] LABS: BACTERIA,URINE Few /HPF (None Seen); CASTS, URINE 0-2 Hyaline Casts /LPF; MUCUS,URINE Moderate Strands; RBC,URINE 0-5 /HPF (0-5); SQUAMOUS EPITHELIAL CELL,UR FEW Squamous (<= Few); WBC,URINE 0-3 /HPF (0-5)
[2021-09-26 23:17] LABS: BASOPHILS % (AUTO) 0.3 %; EOSINOPHILS # (AUTO) 0.1 10^3/uL (0.0-0.7); EOSINOPHILS % (AUTO) 0.4 %; HCT - HEMATOCRIT 30.8 % (37.0-47.0); HGB - HEMOGLOBIN 10.7 g/dL (12.0-16.0); LYMPHOCYTES # (AUTO) 1.5 10^3/uL (1.5-3.5); LYMPHOCYTES % (AUTO) 10.9 %; MEAN CORPUSCULAR HEMOGLOBIN 30.1 pg (27.0-31.0); MEAN CORPUSCULAR HGB CONC 34.7 g/dL (32.0-36.0); MEAN CORPUSCULAR VOLUME 86.5 fL (81.0-99.0); MEAN PLATELET VOLUME 10.1 fL (7.9-10.8); MONOCYTES # (AUTO) 0.7 10^3/uL (0.0-1.0); MONOCYTES % (AUTO) 5.4 %; NEUTROPHILS # (AUTO) 11.2 10^3/uL (1.5-6.6); NEUTROPHILS % (AUTO) 82.6 %; PLT - PLATELET COUNT 252 10^3/uL (130-450); RED BLOOD COUNT 3.56 10^6/uL (4.20-5.40); RED CELL DISTRIBUTION WIDTH 13.6 % (12.0-15.0); WHITE BLOOD COUNT 13.6 x10^3/uL (4.8-10.8)
[2021-09-26 23:30] LABS: ALBUMIN 4.1 g/dL (3.2-5.5); ALBUMIN/GLOBULIN RATIO 1.1 (1.0-2.2); BILIRUBIN,TOTAL 1.2 mg/dL (0.2-1.0); CREATININE 0.6 mg/dL (0.4-1.0); POTASSIUM 3.3 mmol/L (3.5-5.0); TOTAL PROTEIN 7.9 g/dL (6.7-8.2)
[2021-09-26] MEDS ORDERED: ACETAMINOPHEN 500 MG TABLET PO STA (23:42)
--- NOTE | 2021-09-27 02:51 | ED Physician Documentation ---
PD HPI FEMALE - Stated complaint Stated Complaint: FEMALE - Chief complaint Chief Complaint: Abd Pain - Additional information Additional information: Patient who is G1, P0 and approximately 18 Weeks presenting for evaluation of lower abdominal pain that started this evening. This is patient's second visit to the ED and she left without being seen previously. Patient reports getting into an argument with her as she recently found out he had cheated on her.This evening when taking a bath, she thought she felt a gush of fluid from the vagina. She also describes lower abdominal pain. She had been feeling baby move up until today. She reports feeling very emotionally upset by her 's actionsBut denies being suicidal or homicidal. She denies feeling unsafe at home.Her last OB appointment was 1 week ago and without any issues.She denies headache, vision changes, chest pain, difficulty breathing, upper abdominal pain, vomiting. She reports nausea. Review of Systems Constitutional: denies: Fever Nose: denies: Congestion Cardiac: denies: Chest pain / pressure, Palpitations Respiratory: denies: Dyspnea, Cough GI: reports: Abdominal Pain, Nausea. 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 : None HEENT: None Psych: Depression, Anxiety Musculoskeletal: None Derm: None - Past Surgical History Past Surgical History: No - Present Medications Home Medications: Ambulatory Orders Medication Instructions Recorded Confirmed Sertraline [Zoloft] 25 mg PO DAILY 07/20/21 07/25/21 Nitrofurantoin [Macrobid] 100 mg PO DAILY 07/25/21 07/25/21 Ondansetron Odt [Zofran] 4 mg TL Q6H PRN #10 tablet 07/25/21 Ondansetron Odt [Zofran] 4 mg TL Q6H PRN #10 tablet 07/25/21 07/25/21 Sucralfate [Carafate] 1 gm PO ACHS #60 tablet 07/25/21 07/25/21 - Allergies Allergies/Adverse Reactions: Allergies Allergy/AdvReac Type Severity Reaction Status Date / Time No Known Drug Allergies Allergy Verified 09/26/21 22:03 - Social History Does the pt smoke?: No Smoking Status: Never smoker Does the pt drink ETOH?: Yes Does the pt have substance abuse?: No - Immunizations Immunizations are current?: No - POLST Patient has POLST: No PD ED PE NORMAL - General General: Alert and oriented X 3, No acute distress, Well developed/nourished - HEENT HEENT: Atraumatic, Moist mucous membranes - Neck Neck: Supple, no meningeal sign - Cardiac Cardiac: RRR, No murmur, Strong equal pulses - Respiratory Respiratory: No respiratory distress, Clear bilaterally - Abdomen Abdomen: Normal bowel sounds, Soft, Other (Mild suprapubic and left lower quadrant tenderness to palpation) - Female Female : Pt declined (Speculum exam), Diamond Die 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), Other (Normal external exam) - Back Back: No CVA TTP - Derm Derm: Normal color, Warm and dry - Extremities Extremities: No edema - Neuro Neuro: Alert and oriented X 3, No motor deficit, Normal speech - Psych Psych: Other (Tearful when talking about recent stressors such as cheating ) Results - Vitals Vitals: Vital Signs - 24 hr 09/26/21 09/26/21 09/27/21 21:57 23:41 01:00 Temperature 36.3 C L Heart Rate 95 98 80 Respiratory 18 14 17 Rate Blood Pressure 131/65 H 144/94 H 106/77 O2 Saturation 99 99 100 09/27/21 09/27/21 03:00 03:24 Temperature 36.4 C L Heart Rate 71 70 Respiratory 16 16 Rate Blood Pressure 110/71 110/71 O2 Saturation 99 99 Oxygen O2 Source Room air - EKG (time done) 2246 Rate: Rate (enter#) (86) Rhythm: NSR [place]: Normal Intervals: No: Prolonged QT Ischemia: No: ST elevation c/w ischemia, Hyperacute T waves Computer interpretation: Agree with computer - Labs Labs: Laboratory Tests 09/26/21 09/26/21 09/26/21 23:00 23:06 23:06 WBC 13.6 H RBC 3.56 L Hgb 10.7 L Hct 30.8 L MCV 86.5 MCH 30.1 MCHC 34.7 RDW 13.6 Plt Count 252 MPV 10.1 Neut # (Auto) 11.2 H Lymph # (Auto) 1.5 [place] # (Auto) 0.7 Eos # (Auto) 0.1 Baso # (Auto) 0.0 Absolute Nucleated RBC 0.00 Nucleated RBC % 0.0 Sodium 137 Potassium 3.3 L Chloride 103 Carbon Dioxide 21 Anion Gap 13.0 BUN 7 Creatinine 0.6 Estimated GFR (MDRD) 144 Glucose 96 Calcium 9.0 Total Bilirubin 1.2 H AST 24 ALT 20 Alkaline Phosphatase 55 Total Protein 7.9 Albumin 4.1 Globulin 3.8 Albumin/Globulin Ratio 1.1 Urine Color DARK YELLOW Urine Clarity CLEAR Urine pH 6.0 Ur Specific [place] >=1.030 H Urine Protein 100 H Urine Glucose (UA) NEGATIVE Urine Ketones >=80 H Urine Occult Blood NEGATIVE Urine Nitrite NEGATIVE Urine Bilirubin NEGATIVE Urine Urobilinogen 0.2 (NORMAL) Ur Leukocyte Esterase NEGATIVE Urine RBC 0-5 Urine WBC 0-3 Ur Squamous Epith Cells FEW Squamous Urine Bacteria Few Urine Casts 0-2 Hyaline Casts Urine Mucus Moderate Strands Ur Microscopic Review INDICATED Urine Culture Comments NOT INDICATED PD MEDICAL DECISION MAKING - ED course Complexity details: reviewed results, d/w patient ED course: Patient in second trimester with abdominal pain and concerns for leakage of fluids. Preliminary ultrasound report with single live intrauterine gestation estimated at 18 weeks 14 days. Large right ovarian cyst. No findings to suggest ovarian torsion. Closed cervix.Repeat abdominal exam is benign patient has no right lower quadrant tenderness on exam.Patient has been very distraught regarding recent stressors in her life particularly her 's infidelity.However she denies being suicidal or homicidal and does not appear acutely psychotic. She feels safe at home. They are planning on moving back to [place] here shortly. She does have appropriate OB follow-up. She is aware of strict return precautions. 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 After External exam, patient declined speculum or manual exam. Denies further episodes of feeling gush of fluid or bleeding.Has had ultrasound performed. Departure - Departure Disposition: 01 Home, Self Care Clinical Impression: Abdominal pain affecting , Right ovarian cyst, Stress and adjustment reaction, Hypokalemia Anemia in preg-unspec Qualifiers: Trimester: second trimester Qualified Code(s): O99.012 - Anemia complicating , second trimester Condition: Stable Instructions: Preg 2nd Trimester Coping, Stress Relief Relaxation, ED Cyst Ovarian Comments: You were evaluated for abdominal pain this evening. Your ultrasound showsYour baby with a good heart rate and appropriate amount of fluid. Based on the ultrasound it appears that your cervix is also closed. You do have a large cyst on your right ovary.Your labs show that you are slightly anemic - Please discuss starting an iron pill with your OB doctor. Your potassium level was also slightly low and you were given a potassium pill. You need close follow-up with your OB doctor. Please return the emergency department with worsening pain, vaginal bleeding or discharge. You also expressed Stressors related to your relationship. If it anytime you are having thoughts of harming yourself or anyone else please come immediately to the emergency department. Discharge Date/Time: 09/27/21 03:24
[2021-09-27 03:06] VITALS: BP 110/71
[2021-09-27] MEDS ORDERED: POTASSIUM CHLORIDE 20 MEQ TABLET PO STA (03:07)
--- NOTE | 2021-09-27 07:20 | Ultrasound Report ---
PROCEDURE: OB 14+ Weeks INDICATIONS: abdominal pain, 19 weeks OUTSIDE/PRIOR DATING DATA: Last menstrual period (LMP): Not known. LMP-based estimated date of delivery (RIANA): Not applicable. First dating scan (date and location): 07/25/2021. Estimated date of delivery (RIANA) from first dating scan: 02/25/2022. The below data below was generated using the ultrasound RIANA of 02/25/2022 TECHNIQUE: Real-time scanning was performed of the fetus, with image documentation and biometric measurements. Endovaginal scanning: Performed COMPARISON: None. FINDINGS: General: A single living intrauterine gestation is present. Presentation: Breech Placenta: Placental position is posterior, without previa. Amniotic fluid index: 18.8 cm, normal 5-24 cm. Largest pocket 5.96 cm heart rate: 140 beats per minute. Maternal cervical canal: Closed and 3.8 cm long; normal length is 2.5 cm or more. biometrics: Biparietal diameter: 19 weeks 2 days Head circumference: 18 weeks 4 days Abdominal circumference: 18 weeks 3 days Femur length: 18 weeks 1 day Estimated gestational age from initial scan: 18 weeks 3 days. Composite gestational age from present scan: 18 weeks 4 days Estimated weight and percentile: 235 g; 40th percentile Measurement variability for biometric dating: +/- 10 days from 12-20 weeks gestation, +/- 2 weeks fro m 20-30 weeks gestation, +/- 3 weeks for 30 weeks gestation or later. Anatomic survey: Limited anatomic survey demonstrates normal chest and diaphragm, normal kidneys are normal. [place] er. 5.3 x 9.1 x 4.5 cm left ovarian cyst is noted which previously measured 6.4 x 5.8 x 3.8 cm. Upper thi gh which demonstrates normal flow in the right ovary. IMPRESSION: 1. Single living intrauterine gestation with appropriate interval growth. 2. Amniotic fluid index normal. 3. Very limited anatomic survey within normal limits. Recommend complete anatomic survey at 2224 weeks gestation. 4. Large right ovarian cyst. No evidence of ovarian torsion. Please note ultrasound cannot exclude in termittent ovarian torsion. Recommend gynecologic consultation. Reviewed by: Aileen Healy MD, PhD on 09/27/2021 7:18 AM PDT Approved by: Aileen Healy MD, PhD on 09/27/2021 7:18 AM PDT Station ID: [id number]
== END 2021-09-27 03:24 | disposition home or self-care (01) ==
LOC: ED 21:35
DX: O99.891 Other specified diseases and conditions complicating pregnancy (principal); R10.9 Unspecified abdominal pain; F43.20 Adjustment disorder, unspecified; F43.9 Reaction to severe stress, unspecified; O99.282 Endocrine, nutritional and metabolic diseases complicating pregnancy, second trimester; O34.82 Maternal care for other abnormalities of pelvic organs, second trimester; N83.201 Unspecified ovarian cyst, right side; O99.012 Anemia complicating pregnancy, second trimester; Z3A.18 18 weeks gestation of pregnancy
CPT/HCPCS: 36415; 76805; 80053; 81001; 85025; 93005; 99282; 99284; A9270; 81003; 84112; 87086

== ENCOUNTER 2021-09-30 10:16 | Outpatient (CLI) | payer SELFPAY | END 2021-09-30 10:17 | disposition EMS.NT | LOC: EMS 10:16 | DX: F41.9 Anxiety disorder, unspecified (principal) ==